=== PATIENT | male | born 1995 | race Caucasian/White ===

== ENCOUNTER 2020-06-04 05:06 | Emergency (ER) | payer SELFPAY ==
[~2020-06-04] VITALS: Ht 162.6 cm; Wt 113.4 kg
--- NOTE | 2020-06-04 05:06 | NUR ---
PT BIBA TO BED 06.
[2020-06-04 05:10] VITALS: BP 124/52
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
[2020-06-04] MEDS ORDERED: NACL 0.9% 1,000 ML IV STA (05:17)
--- NOTE | 2020-06-04 05:25 | NUR ---
TDAP CONSENT OBTAINED FROM PT
--- NOTE | 2020-06-04 05:28 | NUR ---
PT TAKEN TO CT VIA [facility]
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
--- NOTE | 2020-06-04 05:43 | NUR ---
PT RETURNED FROM CT VIA GURNEY AND PLACED BACK ON LINING MAKER.
[2020-06-04] MEDS ORDERED: LORazepam 2 MG/ML VIAL IVP ONE (05:50)
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
--- NOTE | 2020-06-04 06:11 | NUR ---
ERMD STATES TO OBTAIN UA IF PT NEEDS TO USE RR.
--- NOTE | 2020-06-04 06:33 | NUR ---
UA COLLECTED FROM PATIENT AND WALKED TO LAB
--- NOTE | 2020-06-04 06:41 | NUR ---
BLOOD DRAWN AND TAKEN TO LAB.
[2020-06-04 06:45] LABS: BASOPHILS # (AUTO) 0.1 K/uL (0.00-0.22); BASOPHILS % (AUTO) 0.4 % (0.0-2.0); EOSINOPHILS % (AUTO) 0.1 % (0.0-4.0); HEMATOCRIT 46.4 % (36-52); HEMOGLOBIN 15.5 g/dL (12.0-18.0); LYMPHOCYTES # (AUTO) 2.4 K/uL (2.0-11.5); LYMPHOCYTES % (AUTO) 18.8 % (20.5-51.1); MEAN CORPUSCULAR HEMOGLOBIN 29 pg (27-31); MEAN CORPUSCULAR HGB CONC 33 g/dL (33-37); MEAN CORPUSCULAR VOLUME 86.2 fL (80-94); MONOCYTES # (AUTO) 0.7 K/uL (0.8-1.0); MONOCYTES % (AUTO) 5.5 % (1.7-9.3); NEUTROPHILS # (AUTO) 9.7 K/uL (1.8-7.7); NEUTROPHILS % (AUTO) 75.2 % (42.2-75.2); PLATELET COUNT (AUTO) 305 K/uL (140-450); RED BLOOD CELL COUNT(AUTO) 5.39 MIL/uL (4.20-6.10); RED CELL DISTRIBUTION WIDTH 14.1 % (11.6-13.7); WHITE BLOOD COUNT (AUTO) 12.9 K/uL (4.8-10.8)
[2020-06-04 06:55] LABS: APPEARANCE,URINE CLEAR (CLEAR); BILIRUBIN,URINE NEGATIVE (NEGATIVE); BLOOD, URINE TRACE-I (NEGATIVE); COLOR,URINE YELLOW (YELLOW); LEUKOCYTE ESTERASE ,URINE NEGATIVE (NEGATIVE); NITRITE, URINE NEGATIVE (NEGATIVE); UGLUCOSE NEGATIVE (NEGATIVE)
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
[2020-06-04 07:00] LABS: ALBUMIN 4.6 g/dL (3.4-5.0); ANION GAP 17.4 (8-16); CARBON DIOXIDE 23.4 mmol/L (21-32); CREATININE 1.2 mg/dL (0.6-1.3); POTASSIUM 3.8 mmol/L (3.5-5.1); TOTAL BILIRUBIN 0.4 mg/dL (0.0-1.0)
--- NOTE | 2020-06-04 07:13 | NUR ---
REPORT GIVEN TO ALIREZA BANKS. TRANSFER OF CARE AT THIS TIME.
--- NOTE | 2020-06-04 07:14 | NUR ---
REPORT RECEIVED FROM ALIREZA JOLLY. TRANSFER OF CARE AT THIS TIME.
--- NOTE | 2020-06-04 07:21 | NUR ---
[place] [employer] at bedside speaking with patient.
--- NOTE | 2020-06-04 07:23 | NUR ---
[employer] SPEAKING TO PT
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
[2020-06-04 07:27] LABS: RBC,URINE 0-5 /HPF (0-5); WBC,URINE 0-5 /HPF (0-5)
[2020-06-04 07:45] LABS: BARBITURATE, URINE NEGATIVE ng/ml (NEG <=200)
[2020-06-04 07:46] LABS: BENZODIAZEPINE, URINE NEGATIVE ng/mL (NEG <=200); CANNABINOID, URINE NEGATIVE ng/mL (NEG <=50); COCAINE, URINE POSITIVE ng/mL (NEG <=300); OPIATE, URINE NEGATIVE ng/mL (NEG <=2000); PHENCYCLIDINE SCREEN,URINE NEGATIVE ng/mL (NEG <=25)
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
--- NOTE | 2020-06-04 09:50 | NUR ---
PT CALLING FAMILY FOR CARDIOPULMONARY TECHNOLOGIST CHIEF POST DISCHARGE
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
[2020-06-04 09:58] VITALS: BP 122/71
== END 2020-06-04 09:57 | disposition home or self-care (01) ==
LOC: MED 05:06
DX: S09.90XA Unspecified injury of head, initial encounter (principal); S02.2XXA Fracture of nasal bones, initial encounter for closed fracture; R04.0 Epistaxis; W25.XXXA Contact with sharp glass, initial encounter; Y93.89 Activity, other specified; Y92.89 Other specified places as the place of occurrence of the external cause; Y99.8 Other external cause status
CPT/HCPCS: 36415; 70450; 70486; 71045; 72125; 80053; 80305; 81001; 83690; 85025; 90471; 90715; 96361; 96374; 99285; G0482; J2060; J7030